=== PATIENT | male | born 1955 | race African-American/Black ===

== ENCOUNTER 2017-08-13 13:50 | Inpatient (IN) ==
[2017-08-13 14:23] LABS: Basophils # 0.1 10*3/uL (0.0-0.2); Basophils % 0.5 % (0.0-0.8); Eosinophils # 0.1 10*3/uL (0.0-0.87); Eosinophils % 0.5 % (0.00-10.9); Hematocrit 42.5 VOL% (42.0-52.0); Hemoglobin 14.2 GM/DL (14.0-18.0); Immature Granulocytes % 0.5 %; Immature Granulocytes Absolute 0.07 #; Lymphocytes # 1.2 10*3/uL (1.4-4.0); Mean Corpuscular HGB Conc 33.4 GM/DL (32-36); Mean Corpuscular Hemoglobin 31 PG (27-34); Mean Platelet Volume 10.1 FL (9.6-12.0); Monocytes # 0.9 10*3/uL (0.11-0.8); Monocytes % 6.6 % (1.7-12.7); Neutrophils # 10.7 10*3/uL (1.4-7.4); Neutrophils % 82.9 % (38.7-73.9); Platelet Count 211 T/CUMM (130-400); Red Blood Count 4.62 MC/CUMM (3.8-5.5); Red Cell Distribution Width 14.8 % (9.3-17.3); White Blood Count 12.9 T/CUMM (4-12)
[2017-08-13 14:37] LABS: Albumin 3.6 G/DL (3.4-5.0); Bilirubin,Total 0.5 MG/DL (0.2-1.0); Calcium 8.9 MG/DL (8.5-10.1); Osmolality,Calculated 286.8 MOS/KG (273-304); Potassium 3.9 MMOL/L (3.5-5.1); Total Protein 7.2 G/DL (6.4-8.3)
[2017-08-13] MEDS ORDERED: GLUCAGON 1 MG VIAL IM PRN ×2 (14:41→17:42)
[2017-08-13] MEDS ORDERED: ONDANSETRON 4 MG/2 ML VIAL IV PRN (14:41)
[2017-08-13] MEDS ORDERED: MORPHINE 4 MG/1 ML VIAL IV PRN ×2 (14:41)
[2017-08-13] MEDS ORDERED: DEXTROSE 50% 25 GM/50 ML VIAL IV PRN ×2 (14:41→17:42)
[2017-08-13 14:43] LABS: PT Patient Result 10.6 SECS; Partial Thromboplastin Time 24.3 SECS (0-40)
[2017-08-13] MEDS ORDERED: HYDROmorphone 2 MG/1 ML VIAL IV STA (14:55)
[2017-08-13] MEDS ORDERED: ONDANSETRON 4 MG/2 ML VIAL IV STA (14:55)
[2017-08-13 15:18] LABS: Apearance,Urine CLEAR (Clear); Bacteria,Urine Occasional /HPF (Few); Bilirubin,Urine Negative (Negative); Blood, Urine Negative (Negative); Glucose,Urine (UA) Negative (Negative); Hyaline Casts,Urine 3 /LPF (0-3); Ketones,Urine 5 mg/dL (Negative); Mucus,Urine Occasional /LPF (Occasional); Nitrite,Urine Negative (Negative); Protein,Urine 100 MG/DL; RBC,Urine 1 /HPF (0-4); Sperm,Urine Moderate /HPF (Negative); Squamous Epithelial Cell,Urine Occasional /HPF (0-10); Urine Color Yellow (Yellow); Urine Specific Gravity 1.011 (1.001-1.035); Urine Urobilinogen < 2.0 EU/DL (0.2-1.0); WBC,Urine 2 /HPF (0-6)
[2017-08-13] MEDS: LACTATED RINGERS 1,000 ML IV SCH (16:59)
[2017-08-13] MEDS: INSULIN LISPRO 100 UNIT/ML SUBCUT SCH ×2 (17:00→21:25)
[2017-08-13] MEDS: VITAMIN E 400 UNIT CAPSULE PO SCH (21:15)
[2017-08-13] MEDS: ROSUVASTATIN 20 MG TABLET PO SCH (21:15)
[2017-08-13] MEDS: INSULIN REGULAR 100 UNIT/ML SUBCUT SCH (21:26)
[2017-08-14] MEDS: LACTATED RINGERS 1,000 ML IV SCH ×2 (02:00→15:06)
[2017-08-14 03:41] LABS: Basophils # 0.1 10*3/uL (0.0-0.2); Basophils % 0.6 % (0.0-0.8); Eosinophils # 0.2 10*3/uL (0.0-0.87); Eosinophils % 2.5 % (0.00-10.9); Hematocrit 36.1 VOL% (42.0-52.0); Hemoglobin 11.7 GM/DL (14.0-18.0); Immature Granulocytes % 0.8 %; Immature Granulocytes Absolute 0.07 #; Lymphocytes # 2.2 10*3/uL (1.4-4.0); Lymphocytes % 24.6 % (21.2-54.2); Mean Corpuscular HGB Conc 32.4 GM/DL (32-36); Mean Corpuscular Hemoglobin 30 PG (27-34); Mean Corpuscular Volume 92.8 FL (87-102); Mean Platelet Volume 10.7 FL (9.6-12.0); Monocytes # 0.8 10*3/uL (0.11-0.8); Monocytes % 9.3 % (1.7-12.7); Neutrophils # 5.6 10*3/uL (1.4-7.4); Neutrophils % 62.2 % (38.7-73.9); Platelet Count 194 T/CUMM (130-400); Red Blood Count 3.89 MC/CUMM (3.8-5.5); Red Cell Distribution Width 14.8 % (9.3-17.3)
[2017-08-14 04:00] LABS: Calcium 7.9 MG/DL (8.5-10.1); Osmolality,Calculated 287.8 MOS/KG (273-304); Potassium 3.6 MMOL/L (3.5-5.1)
[2017-08-14] MEDS ORDERED: ceFAZolin 2,000 MG in PREMIX 1 EACH IV ONE (06:00)
[2017-08-14] MEDS ORDERED: BACITRACIN OINT 0.9 GM PACK TOP ONE (06:54)
[2017-08-14] MEDS: INSULIN REGULAR 100 UNIT/ML SUBCUT SCH ×4 (07:30→20:59)
[2017-08-14] MEDS ORDERED: ZALEPLON 5 MG CAPSULE PO PRN (07:48)
[2017-08-14] MEDS ORDERED: diphenhydrAMINE CAP 25 MG CAPSULE PO PRN (07:48)
[2017-08-14] MEDS: KETOROLAC 30 MG/1 ML VIAL IV SCH ×3 (08:00→20:57)
[2017-08-14] MEDS ORDERED: ONDANSETRON 4 MG/2 ML VIAL ONE ×2 (08:42→09:46)
[2017-08-14] MEDS ORDERED: MEPERIDINE 25 MG/1 ML VIAL ONE (08:42)
[2017-08-14] MEDS: MEPERIDINE 25 MG/1 ML VIAL IV PRN ×2 (08:45→08:55)
[2017-08-14] MEDS ORDERED: ONDANSETRON 4 MG/2 ML VIAL IV PRN (08:53)
[2017-08-14] MEDS ORDERED: PROMETHAZINE INJ 25 MG in SODIUM CHLORIDE 0.9% 50 ML IV PRN (08:53)
[2017-08-14] MEDS ORDERED: MORPHINE 10 MG/1 ML VIAL IV PRN (08:53)
[2017-08-14] MEDS ORDERED: diphenhydrAMINE 50 MG/1 ML VIAL IV PRN (08:53)
[2017-08-14] MEDS ORDERED: PROPOFOL 200 MG/20 ML VIAL IV ONE (09:45)
[2017-08-14] MEDS ORDERED: SEVOFLURANE 1 UNIT/15 MINUTE INH ONE (09:45)
[2017-08-14] MEDS ORDERED: fentaNYL 100 MCG/2 ML VIAL ONE (09:45)
[2017-08-14] MEDS ORDERED: SUCCINYLCHOLINE 200 MG/10 ML VIAL ONE (09:46)
[2017-08-14] MEDS ORDERED: MIDAZOLAM 2 MG/2 ML VIAL ONE (09:46)
[2017-08-14] MEDS ORDERED: ROCURONIUM 100 MG/10 ML VIAL IV ONE (09:46)
[2017-08-14] MEDS ORDERED: PHENYLEPHRINE 1 MG/10 ML SYRINGE IV ONE (09:46)
[2017-08-14] MEDS: INSULIN LISPRO 100 UNIT/ML SUBCUT SCH (13:32)
[2017-08-14] MEDS: amLODIPine 10 MG TABLET PO SCH (13:50)
[2017-08-14] MEDS: EZETIMIBE 10 MG TABLET PO SCH (13:50)
[2017-08-14] MEDS: VALSARTAN 160 MG TABLET PO SCH (13:50)
[2017-08-14] MEDS: ceFAZolin 2,000 MG in PREMIX 1 EACH IV SCH ×2 (14:56→22:36)
[2017-08-14] MEDS: ROSUVASTATIN 20 MG TABLET PO SCH (20:57)
[2017-08-14] MEDS: VITAMIN E 400 UNIT CAPSULE PO SCH (21:00)
[2017-08-15] MEDS: KETOROLAC 30 MG/1 ML VIAL IV SCH (01:18)
[2017-08-15] MEDS: FONDAPARINUX 2.5 MG/0.5 ML SYRINGE SUBCUT SCH (01:20)
[2017-08-15] MEDS: LACTATED RINGERS 1,000 ML IV SCH (01:21)
[2017-08-15 03:44] LABS: Basophils # 0.1 10*3/uL (0.0-0.2); Basophils % 0.6 % (0.0-0.8); Eosinophils # 0.3 10*3/uL (0.0-0.87); Eosinophils % 3.6 % (0.00-10.9); Hematocrit 34.4 VOL% (42.0-52.0); Hemoglobin 11.7 GM/DL (14.0-18.0); Immature Granulocytes % 0.3 %; Immature Granulocytes Absolute 0.03 #; Lymphocytes # 1.6 10*3/uL (1.4-4.0); Mean Corpuscular Hemoglobin 31 PG (27-34); Mean Corpuscular Volume 89.8 FL (87-102); Monocytes # 0.8 10*3/uL (0.11-0.8); Monocytes % 9.2 % (1.7-12.7); Neutrophils # 6.1 10*3/uL (1.4-7.4); Neutrophils % 68.3 % (38.7-73.9); Platelet Count 161 T/CUMM (130-400); Red Blood Count 3.83 MC/CUMM (3.8-5.5); Red Cell Distribution Width 14.6 % (9.3-17.3); White Blood Count 8.9 T/CUMM (4-12)
[2017-08-15 04:02] LABS: Calcium 8.1 MG/DL (8.5-10.1); Osmolality,Calculated 282.1 MOS/KG (273-304); Potassium 3.6 MMOL/L (3.5-5.1)
[2017-08-15] MEDS: INSULIN REGULAR 100 UNIT/ML SUBCUT SCH ×4 (08:05→21:03)
[2017-08-15] MEDS: amLODIPine 10 MG TABLET PO SCH (08:56)
[2017-08-15] MEDS: VALSARTAN 160 MG TABLET PO SCH (08:59)
[2017-08-15] MEDS: metFORMIN 500 MG TABLET PO SCH ×2 (09:00→16:27)
[2017-08-15] MEDS: EZETIMIBE 10 MG TABLET PO SCH (09:02)
[2017-08-15] MEDS: CELECOXIB 200 MG CAPSULE PO SCH (14:30)
[2017-08-15] MEDS: ROSUVASTATIN 20 MG TABLET PO SCH (21:03)
[2017-08-15] MEDS: VITAMIN E 400 UNIT CAPSULE PO SCH (21:04)
[2017-08-15] MEDS: MAGNESIUM HYDROXIDE SUSP 30 ML UDCUP PO PRN (22:57)
[2017-08-16] MEDS: FONDAPARINUX 2.5 MG/0.5 ML SYRINGE SUBCUT SCH (01:42)
[2017-08-16 06:00] LABS: Basophils # 0.1 10*3/uL (0.0-0.2); Basophils % 0.7 % (0.0-0.8); Eosinophils # 0.5 10*3/uL (0.0-0.87); Eosinophils % 5.2 % (0.00-10.9); Hematocrit 36.7 VOL% (42.0-52.0); Hemoglobin 12.1 GM/DL (14.0-18.0); Immature Granulocytes % 0.4 %; Immature Granulocytes Absolute 0.04 #; Lymphocytes # 1.6 10*3/uL (1.4-4.0); Lymphocytes % 17.5 % (21.2-54.2); Mean Corpuscular Hemoglobin 31 PG (27-34); Mean Corpuscular Volume 92.7 FL (87-102); Monocytes # 0.8 10*3/uL (0.11-0.8); Monocytes % 8.7 % (1.7-12.7); Neutrophils # 6.1 10*3/uL (1.4-7.4); Neutrophils % 67.5 % (38.7-73.9); Platelet Count 169 T/CUMM (130-400); Red Blood Count 3.96 MC/CUMM (3.8-5.5); Red Cell Distribution Width 14.3 % (9.3-17.3)
[2017-08-16 07:54] VITALS: BP 156/101
[2017-08-16] MEDS: metFORMIN 500 MG TABLET PO SCH (08:29)
[2017-08-16] MEDS: CELECOXIB 200 MG CAPSULE PO SCH (08:29)
[2017-08-16] MEDS: amLODIPine 10 MG TABLET PO SCH (08:29)
[2017-08-16] MEDS: INSULIN REGULAR 100 UNIT/ML SUBCUT SCH ×2 (08:29→12:14)
[2017-08-16] MEDS: EZETIMIBE 10 MG TABLET PO SCH (08:29)
[2017-08-16] MEDS: VALSARTAN 160 MG TABLET PO SCH (08:29)
[2017-08-16] MEDS: MAGNESIUM HYDROXIDE SUSP 30 ML UDCUP PO PRN (11:36)
== END 2017-08-16 12:20 | disposition home health service (06) | DRG 482 ==
LOC: EDBD → EDUNIT# → N.ED 13:50 → N.EDINP 14:41 → N.3E 16:38
PROVIDERS: ADMIT Orthopaedic Surgery; ATTEND Orthopaedic Surgery